=== PATIENT | female | born 1975 ===

== ENCOUNTER 2021-04-07 12:45 | Inpatient (IN) | payer OTHER ==
[~2021-04-07] VITALS: Ht 157.5 cm; Wt 55.8 kg
[2021-04-09] MEDS ORDERED: REFRESH RELIEVA10 ML (07:56)
== END 2021-04-12 18:16 | disposition home or self-care (01) | DRG 743 ==
LOC: O/R 04-09 04:55 → OB/GYN 04-09 12:45 → EDBD 04-09 12:45 → OB/GYN 04-09 13:37
PROVIDERS: ADMIT Specialist; ATTEND Specialist
PROC: 0DNW0ZZ Release Peritoneum, Open Approach (ICD-10-PCS; 2021-04-09)
PROC: 0UT20ZZ Resection of Bilateral Ovaries, Open Approach (ICD-10-PCS; 2021-04-09)
PROC: 0UT70ZZ Resection of Bilateral Fallopian Tubes, Open Approach (ICD-10-PCS; 2021-04-09)
PROC: 0UT90ZZ Resection of Uterus, Open Approach (ICD-10-PCS; principal; 2021-04-09 08:30)
DX: D25.1 Intramural leiomyoma of uterus (principal); D25.2 Subserosal leiomyoma of uterus; N80.0 Endometriosis of uterus; N72 Inflammatory disease of cervix uteri; N80.1 Endometriosis of ovary; N80.2 Endometriosis of fallopian tube; N83.8 Other noninflammatory disorders of ovary, fallopian tube and broad ligament; N83.01 Follicular cyst of right ovary; N83.201 Unspecified ovarian cyst, right side; R19.00 Intra-abdominal and pelvic swelling, mass and lump, unspecified site